=== PATIENT | female | born 1970 | race Caucasian/White ===

== ENCOUNTER 2019-09-17 16:15 | Inpatient (IN) ==
[2019-09-17] MEDS ORDERED: Ondansetron 4 MG/2 ML VIAL IVP PRN (17:38)
[2019-09-17] MEDS ORDERED: Naloxone 0.4 MG/ML INJ IVP PRN (17:38)
[2019-09-17] MEDS ORDERED: *HR* Metoprolol 5 MG/5 ML VIAL IVP PRN (17:38)
[2019-09-17] MEDS ORDERED: *HR* Promethazine 25 MG/ML VIAL IVP PRN (17:38)
[2019-09-17] MEDS ORDERED: Piperacillin/Tazobactam 3.375 GM in 0.9 % Sodium Chloride Mini Bag 100 ML IVPB ONE (17:41)
[2019-09-17] MEDS ORDERED: *HR* Dextrose 50 % in Water (Syg) 50 ML SYRINGE IVP PRN (18:28)
[2019-09-17] MEDS ORDERED: D5% in Water 1,000 ML IVC PRN (18:28)
[2019-09-17] MEDS ORDERED: Dextrose Gel 15 GM/37.5 ML TUBE PO PRN ×2 (18:28)
[2019-09-17 18:36] LABS: INR 1.3; Prothrombin Time 14.2 Seconds (9.4-12.1)
[2019-09-17 18:45] LABS: Basophils # 0.1 K/mcL (0.0-0.2); Basophils % 0.5 %; Eosinophils # 0.1 K/mcL (0.0-0.6); Eosinophils % 0.7 %; Hematocrit 40.7 % (35.3-44.9); Immature Granulocytes % 0.7 % (0-4); Lymphocytes # 2.3 K/mcL (0.6-4.6); Lymphocytes % 17.5 %; Mean Corpuscular HGB Conc 29.5 g/dL (31.6-35.5); Mean Corpuscular Hemoglobin 24.1 pg (28.0-33.3); Mean Corpuscular Volume 81.9 fL (83.0-100.0); Mean Platelet Volume 10.7 fL (9.4-12.4); Monocytes # 0.9 K/mcL (0.0-1.3); Monocytes % 6.9 %; Neutrophils # 9.9 K/mcL (1.6-8.9); Platelet Count 542 K/mcL (140-400); Red Blood Count 4.97 M/mcL (3.82-4.97); Red Cell Distribution Width 22.4 % (11.5-14.5); Segmented Neutrophils % 73.7 %; White Blood Count 13.4 K/mcL (4.3-11.1)
[2019-09-17 19:02] LABS: BUN/Creatinine Ratio 16 (6-26); Blood Urea Nitrogen 12 mg/dL (6-20); Calcium 9.6 mg/dL (8.6-10.3); Carbon Dioxide 19 mEq/L (23-29); Chloride 97 mEq/L (98-107); Glucose 150 mg/dL (70-105); Magnesium 1.8 mg/dL (1.6-2.6); Osmolality,Calculated 271 (280-300); Potassium 3.9 mEq/L (3.5-5.1); Sodium 129 mEq/L (136-145); eGFR For African Americans > 60 (> 60); eGFR For Non-African Americans > 60 (> 60)
[2019-09-17] MEDS: 0.9 % Sodium Chloride 1,000 ML IVC SCH (19:31)
[2019-09-17] MEDS: Acetaminophen IV 1,000 MG/100 ML INFUS..BTL IVPB SCH (21:00)
[2019-09-18] MEDS: Acetaminophen IV 1,000 MG/100 ML INFUS..BTL IVPB SCH ×2 (00:02→05:57)
[2019-09-18] MEDS: Insulin LISPRO 300 UNITS/3 ML VIAL SQ SCH ×5 (00:03→21:03)
[2019-09-18] MEDS: *HR* Metoprolol 5 MG/5 ML VIAL IVP SCH ×4 (00:03→17:20)
[2019-09-18] MEDS: 0.9 % Sodium Chloride 1,000 ML IVC SCH ×2 (02:47→17:19)
[2019-09-18 04:42] LABS: Basophils # 0.1 K/mcL (0.0-0.2); Eosinophils # 0.2 K/mcL (0.0-0.6); Eosinophils % 1.8 %; Hematocrit 34.7 % (35.3-44.9); Hemoglobin 10.5 g/dL (11.5-15.4); Immature Granulocytes % 0.5 % (0-4); Lymphocytes % 21.9 %; Mean Corpuscular HGB Conc 30.3 g/dL (31.6-35.5); Mean Corpuscular Volume 82.6 fL (83.0-100.0); Monocytes # 0.8 K/mcL (0.0-1.3); Monocytes % 8.5 %; Platelet Count 425 K/mcL (140-400); Red Cell Distribution Width 22.4 % (11.5-14.5); Segmented Neutrophils % 66.3 %; White Blood Count 9.1 K/mcL (4.3-11.1)
[2019-09-18] MEDS: Piperacillin/Tazobactam 3.375 GM in 0.9 % Sodium Chloride Mini Bag 100 ML IVPB SCH ×3 (04:52→21:02)
[2019-09-18 05:09] LABS: BUN/Creatinine Ratio 19 (6-26); Blood Urea Nitrogen 10 mg/dL (6-20); Calcium 8.6 mg/dL (8.6-10.3); Carbon Dioxide 20 mEq/L (23-29); Chloride 108 mEq/L (98-107); Glucose 81 mg/dL (70-105); Magnesium 1.7 mg/dL (1.6-2.6); Osmolality,Calculated 280 (280-300); Phosphorous 3.5 mg/dL (2.7-4.5); Potassium 3.4 mEq/L (3.5-5.1); Sodium 136 mEq/L (136-145); eGFR For African Americans > 60 (> 60); eGFR For Non-African Americans > 60 (> 60)
[2019-09-18] MEDS: *HR* Heparin 5,000 UNIT/ML VIAL SQ SCH ×2 (05:55→17:20)
[2019-09-18] MEDS ORDERED: 0.45 % Sodium Chloride w/KCl 20 MEQ/1,000 ML MLS IVC SCH (07:15)
[2019-09-18] MEDS ORDERED: Lidocaine -MPF 1% 5 ML AMPUL INFILT ONE (09:53)
[2019-09-18] MEDS: Pantoprazole 40 MG VIAL IVP SCH (10:17)
[2019-09-18] MEDS: Iron Sucrose Complex 200 MG in 0.9 % Sodium Chloride 100 ML IVPB SCH (10:17)
[2019-09-18] MEDS ORDERED: D10% in Water 500 ML IVC PRN (11:12)
[2019-09-18] MEDS ORDERED: Acetaminophen IV 1,000 MG/100 ML INFUS..BTL IVPB PRN (11:22)
[2019-09-18] MEDS: Ketorolac 30 MG/ML VIAL IVP PRN (12:11)
[2019-09-18] MEDS: *HR* LORazepam 2 MG/ML VIAL IVP PRN (13:30)
[2019-09-18] MEDS ORDERED: Clinimix E 5%-15% SOLUTION 2,000 ML with MVI, adult with vitamin K 10 ML IVC SCH (17:00)
[2019-09-18] MEDS: Nicotine 2 MG GUM BC SCH (17:20)
[2019-09-19] MEDS: Nicotine 2 MG GUM BC SCH ×2 (00:46→08:35)
[2019-09-19] MEDS: Insulin LISPRO 300 UNITS/3 ML VIAL SQ SCH ×7 (00:51→23:55)
[2019-09-19] MEDS: *HR* Metoprolol 5 MG/5 ML VIAL IVP SCH ×4 (00:56→23:55)
[2019-09-19] MEDS: 0.9 % Sodium Chloride 1,000 ML IVC SCH (00:58)
[2019-09-19] MEDS: Piperacillin/Tazobactam 3.375 GM in 0.9 % Sodium Chloride Mini Bag 100 ML IVPB SCH ×3 (04:24→20:32)
[2019-09-19] MEDS: *HR* Heparin 5,000 UNIT/ML VIAL SQ SCH ×2 (05:14→17:04)
[2019-09-19 05:37] LABS: Basophils # 0.1 K/mcL (0.0-0.2); Basophils % 0.7 %; Eosinophils # 0.1 K/mcL (0.0-0.6); Eosinophils % 1.4 %; Hematocrit 32.7 % (35.3-44.9); Hemoglobin 9.7 g/dL (11.5-15.4); Immature Granulocytes % 0.3 % (0-4); Lymphocytes # 1.4 K/mcL (0.6-4.6); Lymphocytes % 20.3 %; Mean Corpuscular HGB Conc 29.7 g/dL (31.6-35.5); Mean Corpuscular Hemoglobin 24.7 pg (28.0-33.3); Mean Corpuscular Volume 83.4 fL (83.0-100.0); Mean Platelet Volume 10.6 fL (9.4-12.4); Monocytes # 0.5 K/mcL (0.0-1.3); Monocytes % 7.6 %; Neutrophils # 4.9 K/mcL (1.6-8.9); Platelet Count 398 K/mcL (140-400); Red Blood Count 3.92 M/mcL (3.82-4.97); Red Cell Distribution Width 22.4 % (11.5-14.5); Segmented Neutrophils % 69.7 %; White Blood Count 7.1 K/mcL (4.3-11.1)
[2019-09-19 05:53] LABS: Magnesium 1.7 mg/dL (1.6-2.6)
[2019-09-19 05:55] LABS: BUN/Creatinine Ratio 13 (6-26); Blood Urea Nitrogen 6 mg/dL (6-20); Calcium 8.4 mg/dL (8.6-10.3); Carbon Dioxide 21 mEq/L (23-29); Chloride 109 mEq/L (98-107); Glucose 141 mg/dL (70-105); Osmolality,Calculated 286 (280-300); Potassium 3.5 mEq/L (3.5-5.1); Sodium 138 mEq/L (136-145); eGFR For African Americans > 60 (> 60); eGFR For Non-African Americans > 60 (> 60)
[2019-09-19] MEDS ORDERED: 0.9 % Sodium Chloride 1,000 ML IVC SCH (07:25)
[2019-09-19] MEDS: Iron Sucrose Complex 200 MG in 0.9 % Sodium Chloride 100 ML IVPB SCH (08:35)
[2019-09-19] MEDS: Pantoprazole 40 MG VIAL IVP SCH (08:35)
[2019-09-19] MEDS: *HR* LORazepam 2 MG/ML VIAL IVP PRN ×2 (09:34→17:04)
[2019-09-19] MEDS ORDERED: Isovue-370 500 ML BOTTLE IVP ONE (09:44)
[2019-09-19] MEDS: Nicotine 7 MG PATCH.TD24 TD SCH (10:07)
[2019-09-19 11:55] LABS: Bilirubin,Urine Negative (Negative); Blood,Urine Trace (Negative); Clarity,Urine Clear (Clear); Color,Urine Yellow (Yellow); Glucose,Urine (UA) >=1000 mg/dL (Normal); Ketones,Urine Negative (Negative); Leukocyte Esterase,Urine Negative (Negative); Nitrite,Urine Negative (Negative); Protein,Urine Negative (Neg-Trace); Specific Gravity,Urine > 1.030 (1.010-1.025); Urobilinogen,Urine Normal (Normal)
[2019-09-19 11:58] LABS: Bacteria,Urine None Seen per hpf (None-Few); Hyaline Casts,Urine None Seen per lpf (None-Few); RBC,Urine 0-3 per hpf (0-3); Squamous Epithelial Cell,Urine None Seen per lpf (None-Few); WBC,Urine 0-3 per hpf (0-3)
[2019-09-19] MEDS ORDERED: Clinimix E 5%-15% SOLUTION 2,000 ML with MVI, adult with vitamin K 10 ML IVC SCH (17:00)
[2019-09-20] MEDS: Ketorolac 30 MG/ML VIAL IVP PRN (04:28)
[2019-09-20] MEDS: Insulin LISPRO 300 UNITS/3 ML VIAL SQ SCH ×2 (04:29→10:21)
[2019-09-20] MEDS: Piperacillin/Tazobactam 3.375 GM in 0.9 % Sodium Chloride Mini Bag 100 ML IVPB SCH ×2 (04:29→12:20)
[2019-09-20 04:44] LABS: Basophils # 0.1 K/mcL (0.0-0.2); Basophils % 1.1 %; Eosinophils # 0.2 K/mcL (0.0-0.6); Eosinophils % 2.9 %; Hematocrit 32.9 % (35.3-44.9); Hemoglobin 9.6 g/dL (11.5-15.4); Immature Granulocytes % 0.3 % (0-4); Lymphocytes # 1.8 K/mcL (0.6-4.6); Mean Corpuscular HGB Conc 29.2 g/dL (31.6-35.5); Mean Corpuscular Hemoglobin 24.2 pg (28.0-33.3); Mean Corpuscular Volume 82.9 fL (83.0-100.0); Mean Platelet Volume 10.5 fL (9.4-12.4); Monocytes # 0.7 K/mcL (0.0-1.3); Monocytes % 10.5 %; Neutrophils # 3.6 K/mcL (1.6-8.9); Platelet Count 358 K/mcL (140-400); Red Blood Count 3.97 M/mcL (3.82-4.97); Red Cell Distribution Width 22.5 % (11.5-14.5); Segmented Neutrophils % 57.2 %; White Blood Count 6.3 K/mcL (4.3-11.1)
[2019-09-20 05:04] LABS: BUN/Creatinine Ratio 14 (6-26); Blood Urea Nitrogen 6 mg/dL (6-20); Calcium 8.2 mg/dL (8.6-10.3); Carbon Dioxide 22 mEq/L (23-29); Chloride 112 mEq/L (98-107); Glucose 151 mg/dL (70-105); Magnesium 1.7 mg/dL (1.6-2.6); Osmolality,Calculated 291 (280-300); Phosphorous 3.2 mg/dL (2.7-4.5); Potassium 3.4 mEq/L (3.5-5.1); Sodium 140 mEq/L (136-145); eGFR For African Americans > 60 (> 60); eGFR For Non-African Americans > 60 (> 60)
[2019-09-20] MEDS: *HR* Heparin 5,000 UNIT/ML VIAL SQ SCH (05:40)
[2019-09-20] MEDS: *HR* Metoprolol 5 MG/5 ML VIAL IVP SCH ×2 (05:40→10:19)
[2019-09-20] MEDS: Pantoprazole 40 MG VIAL IVP SCH (10:19)
[2019-09-20] MEDS: Iron Sucrose Complex 200 MG in 0.9 % Sodium Chloride 100 ML IVPB SCH (10:19)
[2019-09-20] MEDS: Nicotine 7 MG PATCH.TD24 TD SCH (10:20)
[2019-09-20 11:10] VITALS: BP 118/72
[2019-09-20] MEDS ORDERED: Clinimix E 5%-15% SOLUTION 2,000 ML with MVI, adult with vitamin K 10 ML IVC SCH (17:00)
== END 2019-09-20 14:25 | disposition home or self-care (01) ==
LOC: 3ANU
PROVIDERS: ADMIT Surgery; ATTEND Surgery

== ENCOUNTER 2019-09-25 14:07 | Inpatient (IN) ==
[2019-09-25] MEDS ORDERED: *HR* Dextrose 50 % in Water (Syg) 50 ML SYRINGE IVP PRN (17:31)
[2019-09-25] MEDS ORDERED: Dextrose Gel 15 GM/37.5 ML TUBE PO PRN ×2 (17:31)
[2019-09-25] MEDS ORDERED: D5% in Water 1,000 ML IVC PRN (17:31)
[2019-09-25] MEDS ORDERED: *HR* Metoprolol 5 MG/5 ML VIAL IVP PRN (17:32)
[2019-09-25] MEDS ORDERED: Ondansetron 4 MG/2 ML VIAL IVP PRN (17:32)
[2019-09-25] MEDS ORDERED: Naloxone 0.4 MG/ML INJ IVP PRN (17:32)
[2019-09-25] MEDS ORDERED: *HR* Promethazine 25 MG/ML VIAL IVP PRN (17:32)
[2019-09-25] MEDS ORDERED: Piperacillin/Tazobactam 3.375 GM in 0.9 % Sodium Chloride Mini Bag 100 ML IVPB SCH (17:34)
[2019-09-25] MEDS ORDERED: 0.9 % Sodium Chloride 1,000 ML IVC SCH (17:45)
[2019-09-25] MEDS ORDERED: Insulin LISPRO 300 UNITS/3 ML VIAL SQ SCH (18:00)
[2019-09-25] MEDS ORDERED: *HR* LORazepam 2 MG/ML VIAL IVP PRN (18:43)
[2019-09-25] MEDS ORDERED: Nicotine 7 MG PATCH.TD24 TD SCH (18:45)
[2019-09-25] MEDS ORDERED: Albuterol 2.5 MG/3 ML NEBULIZER ONE (22:03)
[2019-09-25] MEDS ORDERED: Ondansetron 4 MG/2 ML VIAL IVP ONE (22:05)
[2019-09-25] MEDS ORDERED: *HR* OxyCODONE Immed Rel 5 MG TABLET PO PRN (22:05)
[2019-09-25] MEDS ORDERED: *HR* Rocuronium Bromide 50 MG/5 ML VIAL ONE (22:28)
[2019-09-25] MEDS ORDERED: Lidocaine -MPF 2% 2 ML VIAL ONE (22:28)
[2019-09-25] MEDS ORDERED: *HR* Propofol 200 MG/20 ML VIAL IVP ONE (22:28)
[2019-09-25] MEDS ORDERED: *HR* FentaNYL (PF) 100 MCG/2 ML VIAL ONE (22:28)
[2019-09-25] MEDS ORDERED: Lidocaine HCL 4 ML Topical Solution (Laryng-O-Jet Kit Sterile Pak) TP ONE (22:28)
[2019-09-25] MEDS ORDERED: *HR* Succinylcholine 200 MG/10 ML VIAL IVP ONE (22:28)
[2019-09-25] MEDS ORDERED: Acetaminophen IV 1,000 MG/100 ML INFUS..BTL ONE (22:30)
[2019-09-25] MEDS ORDERED: Dexamethasone 4 MG/ML VIAL ONE (23:48)
[2019-09-25] MEDS ORDERED: Neostigmine Methylsulfate 3 MG/3 ML SYRINGE ONE (23:48)
[2019-09-25] MEDS ORDERED: Ondansetron 4 MG/2 ML VIAL ONE (23:48)
[2019-09-26] MEDS: *HR* HYDROmorphone PF 0.5 MG/0.5 ML SYRINGE IVP PRN ×4 (00:39→00:54)
[2019-09-26] MEDS ORDERED: D5% in Water 1,000 ML IVC PRN (01:30)
[2019-09-26] MEDS ORDERED: Ondansetron 4 MG/2 ML VIAL IVP PRN (01:30)
[2019-09-26] MEDS ORDERED: *HR* Metoprolol 5 MG/5 ML VIAL IVP PRN (01:30)
[2019-09-26] MEDS ORDERED: Naloxone 0.4 MG/ML INJ IVP PRN (01:30)
[2019-09-26] MEDS ORDERED: *HR* Dextrose 50 % in Water (Syg) 50 ML SYRINGE IVP PRN (01:30)
[2019-09-26] MEDS ORDERED: Dextrose Gel 15 GM/37.5 ML TUBE PO PRN ×2 (01:30)
[2019-09-26] MEDS ORDERED: *HR* Promethazine 25 MG/ML VIAL IVP PRN (01:30)
[2019-09-26 02:12] LABS: Basophils # 0.1 K/mcL (0.0-0.2); Basophils % 0.7 %; Eosinophils # 0.1 K/mcL (0.0-0.6); Eosinophils % 1.2 %; Hematocrit 37.8 % (35.3-44.9); Immature Granulocytes % 0.7 % (0-4); Lymphocytes # 1.2 K/mcL (0.6-4.6); Lymphocytes % 16.2 %; Mean Corpuscular HGB Conc 29.6 g/dL (31.6-35.5); Mean Corpuscular Hemoglobin 25.6 pg (28.0-33.3); Mean Corpuscular Volume 86.3 fL (83.0-100.0); Mean Platelet Volume 10.4 fL (9.4-12.4); Monocytes # 0.4 K/mcL (0.0-1.3); Monocytes % 5.9 %; Neutrophils # 5.7 K/mcL (1.6-8.9); Platelet Count 252 K/mcL (140-400); Red Blood Count 4.38 M/mcL (3.82-4.97); Segmented Neutrophils % 75.3 %; White Blood Count 7.5 K/mcL (4.3-11.1)
[2019-09-26 02:20] LABS: Hemoglobin 11.2 g/dL (11.5-15.4)
[2019-09-26 02:29] LABS: BUN/Creatinine Ratio 13 (6-26); Blood Urea Nitrogen 7 mg/dL (6-20); Calcium 8.3 mg/dL (8.6-10.3); Carbon Dioxide 21 mEq/L (23-29); Chloride 109 mEq/L (98-107); Glucose 208 mg/dL (70-105); Osmolality,Calculated 290 (280-300); Potassium 3.3 mEq/L (3.5-5.1); Sodium 138 mEq/L (136-145); eGFR For African Americans > 60 (> 60); eGFR For Non-African Americans > 60 (> 60)
[2019-09-26 02:43] LABS: Platelet Estimate Normal (Normal)
[2019-09-26] MEDS: 0.9 % Sodium Chloride 1,000 ML IVC SCH ×2 (02:48→17:31)
[2019-09-26] MEDS: *HR* LORazepam 2 MG/ML VIAL IVP PRN ×2 (04:25→23:26)
[2019-09-26] MEDS: Acetaminophen 325 MG TABLET PO SCH ×3 (06:02→17:31)
[2019-09-26] MEDS: Insulin LISPRO 300 UNITS/3 ML VIAL SQ SCH ×3 (06:23→17:32)
[2019-09-26] MEDS ORDERED: 0.9 % Sodium Chloride (Mini-Bag +) 100 ML IVBAG ONE (07:47)
[2019-09-26] MEDS ORDERED: Pantoprazole 40 MG VIAL ONE (07:47)
[2019-09-26] MEDS ORDERED: *HR* Heparin 5,000 UNIT/ML VIAL ONE (07:47)
[2019-09-26] MEDS ORDERED: Acetaminophen 325 MG TABLET PO ONE (07:47)
[2019-09-26] MEDS ORDERED: Ipratropium/Albuterol Neb 3 ML ONE ×2 (07:47→14:34)
[2019-09-26] MEDS ORDERED: Piperacillin/Tazobactam 3.375 GM VIAL ONE (07:47)
[2019-09-26] MEDS: Piperacillin/Tazobactam 3.375 GM in 0.9 % Sodium Chloride Mini Bag 100 ML IVPB SCH ×3 (08:00→23:18)
[2019-09-26] MEDS: *HR* Heparin 5,000 UNIT/ML VIAL SQ SCH ×2 (08:10→20:20)
[2019-09-26] MEDS: Pantoprazole 40 MG VIAL IVP SCH (08:45)
[2019-09-26] MEDS ORDERED: Pantoprazole 40 MG VIAL IVP SCH (09:00)
[2019-09-26] MEDS ORDERED: *HR* Heparin 5,000 UNIT/ML VIAL SQ SCH (09:00)
[2019-09-26] MEDS ORDERED: 0.9 % Sodium Chloride 1,000 ML IV.SOLN ONE (14:34)
[2019-09-26] MEDS ORDERED: *HR* LORazepam 2 MG/ML VIAL ONE (14:34)
[2019-09-26] MEDS: Ipratropium/Albuterol Neb 3 ML IH SCH ×2 (16:16→21:55)
[2019-09-26] MEDS: Nicotine 7 MG PATCH.TD24 TD SCH (17:33)
[2019-09-26] MEDS ORDERED: Ketorolac 15 MG/ML VIAL IVP ONE (21:59)
[2019-09-26] MEDS ORDERED: Acetaminophen IV 1,000 MG/100 ML INFUS..BTL IVPB ONE (22:01)
[2019-09-27] MEDS: Ketorolac 15 MG/ML VIAL IVP SCH ×5 (01:58→23:36)
[2019-09-27] MEDS: Insulin LISPRO 300 UNITS/3 ML VIAL SQ SCH ×5 (02:00→20:44)
[2019-09-27 02:23] LABS: Basophils % 0.6 %; Eosinophils # 0.2 K/mcL (0.0-0.6); Eosinophils % 2.1 %; Hematocrit 36.8 % (35.3-44.9); Hemoglobin 10.9 g/dL (11.5-15.4); Immature Granulocytes % 0.4 % (0-4); Lymphocytes # 1.1 K/mcL (0.6-4.6); Lymphocytes % 15.8 %; Mean Corpuscular HGB Conc 29.6 g/dL (31.6-35.5); Mean Corpuscular Hemoglobin 25.4 pg (28.0-33.3); Mean Corpuscular Volume 85.8 fL (83.0-100.0); Mean Platelet Volume 10.3 fL (9.4-12.4); Monocytes # 0.8 K/mcL (0.0-1.3); Monocytes % 10.7 %; Neutrophils # 5.1 K/mcL (1.6-8.9); Platelet Count 212 K/mcL (140-400); Red Blood Count 4.29 M/mcL (3.82-4.97); Red Cell Distribution Width 24.9 % (11.5-14.5); Segmented Neutrophils % 70.4 %; White Blood Count 7.2 K/mcL (4.3-11.1)
[2019-09-27 02:36] LABS: BUN/Creatinine Ratio 14 (6-26); Blood Urea Nitrogen 6 mg/dL (6-20); Calcium 7.8 mg/dL (8.6-10.3); Carbon Dioxide 22 mEq/L (23-29); Chloride 108 mEq/L (98-107); Glucose 188 mg/dL (70-105); Osmolality,Calculated 283 (280-300); Potassium 3.4 mEq/L (3.5-5.1); Sodium 135 mEq/L (136-145); eGFR For African Americans > 60 (> 60); eGFR For Non-African Americans > 60 (> 60)
[2019-09-27 03:04] LABS: Ovalocytes 2+ (Not Present); Platelet Estimate Normal (Normal); Tear Drop Cells 2+ (Not Present)
[2019-09-27] MEDS: 0.9 % Sodium Chloride 1,000 ML IVC SCH ×3 (03:32→23:49)
[2019-09-27] MEDS: Ipratropium/Albuterol Neb 3 ML IH SCH ×4 (04:06→22:02)
[2019-09-27] MEDS: Piperacillin/Tazobactam 3.375 GM in 0.9 % Sodium Chloride Mini Bag 100 ML IVPB SCH ×3 (07:19→23:36)
[2019-09-27] MEDS: *HR* Heparin 5,000 UNIT/ML VIAL SQ SCH ×2 (07:25→20:43)
[2019-09-27] MEDS: Pantoprazole 40 MG VIAL IVP SCH (07:26)
[2019-09-27] MEDS: Acetaminophen IV 1,000 MG/100 ML INFUS..BTL IVPB SCH ×2 (11:26→17:13)
[2019-09-27] MEDS: Nicotine 7 MG PATCH.TD24 TD SCH (17:15)
[2019-09-27] MEDS: *HR* LORazepam 2 MG/ML VIAL IVP PRN (20:43)
[2019-09-27] MEDS ORDERED: Acetaminophen IV 1,000 MG/100 ML INFUS..BTL IVPB SCH (21:58)
[2019-09-28] MEDS: Acetaminophen IV 1,000 MG/100 ML INFUS..BTL IVPB SCH ×2 (00:23→00:56)
[2019-09-28] MEDS: Ipratropium/Albuterol Neb 3 ML IH SCH ×4 (03:24→21:55)
[2019-09-28] MEDS: Insulin LISPRO 300 UNITS/3 ML VIAL SQ SCH ×3 (05:48→17:35)
[2019-09-28] MEDS: Ketorolac 15 MG/ML VIAL IVP SCH ×3 (05:48→17:36)
[2019-09-28] MEDS: Piperacillin/Tazobactam 3.375 GM in 0.9 % Sodium Chloride Mini Bag 100 ML IVPB SCH ×2 (09:26→15:30)
[2019-09-28] MEDS: *HR* OxyCODONE/APAP 5/325 TABLET PO PRN ×2 (09:27→20:45)
[2019-09-28] MEDS: Pantoprazole 40 MG VIAL IVP SCH (09:27)
[2019-09-28] MEDS: *HR* Heparin 5,000 UNIT/ML VIAL SQ SCH ×2 (09:27→20:44)
[2019-09-28] MEDS: Nicotine 7 MG PATCH.TD24 TD SCH (17:36)
[2019-09-28] MEDS: *HR* LORazepam 2 MG/ML VIAL IVP PRN (20:44)
[2019-09-28] MEDS ORDERED: Insulin LISPRO 300 UNITS/3 ML VIAL SQ SCH (21:00)
[2019-09-29] MEDS: Piperacillin/Tazobactam 3.375 GM in 0.9 % Sodium Chloride Mini Bag 100 ML IVPB SCH ×2 (00:43→08:18)
[2019-09-29] MEDS: Ketorolac 15 MG/ML VIAL IVP SCH ×2 (00:44→05:52)
[2019-09-29] MEDS: Ipratropium/Albuterol Neb 3 ML IH SCH ×2 (03:46→10:26)
[2019-09-29 04:42] LABS: Basophils % 0.4 %; Eosinophils # 0.5 K/mcL (0.0-0.6); Eosinophils % 7.7 %; Hematocrit 33.3 % (35.3-44.9); Hemoglobin 9.8 g/dL (11.5-15.4); Immature Granulocytes % 0.7 % (0-4); Lymphocytes # 1.4 K/mcL (0.6-4.6); Lymphocytes % 20.5 %; Mean Corpuscular HGB Conc 29.4 g/dL (31.6-35.5); Mean Corpuscular Hemoglobin 25.2 pg (28.0-33.3); Mean Corpuscular Volume 85.6 fL (83.0-100.0); Mean Platelet Volume 10.8 fL (9.4-12.4); Monocytes # 0.5 K/mcL (0.0-1.3); Monocytes % 7.7 %; Neutrophils # 4.3 K/mcL (1.6-8.9); Platelet Count 202 K/mcL (140-400); Red Blood Count 3.89 M/mcL (3.82-4.97); Red Cell Distribution Width 25.2 % (11.5-14.5); White Blood Count 6.8 K/mcL (4.3-11.1)
[2019-09-29] MEDS: *HR* OxyCODONE/APAP 5/325 TABLET PO PRN (04:47)
[2019-09-29 05:06] LABS: BUN/Creatinine Ratio 17 (6-26); Blood Urea Nitrogen 7 mg/dL (6-20); Carbon Dioxide 22 mEq/L (23-29); Chloride 113 mEq/L (98-107); Glucose 189 mg/dL (70-105); Magnesium 1.7 mg/dL (1.6-2.6); Osmolality,Calculated 289 (280-300); Phosphorous 2.5 mg/dL (2.7-4.5); Sodium 138 mEq/L (136-145); eGFR For African Americans > 60 (> 60); eGFR For Non-African Americans > 60 (> 60)
[2019-09-29 06:10] LABS: Anisocytosis 1+ (Not Present); Platelet Estimate Normal (Normal)
[2019-09-29] MEDS ORDERED: Potassium Chloride 40 MEQ, Lidocaine 1% 2 ML in 0.9 % Sodium Chloride 500 ML IVPB ONE (07:10)
[2019-09-29] MEDS: Insulin LISPRO 300 UNITS/3 ML VIAL SQ SCH (08:17)
[2019-09-29] MEDS: *HR* Heparin 5,000 UNIT/ML VIAL SQ SCH (08:18)
[2019-09-29] MEDS: Pantoprazole 40 MG VIAL IVP SCH (08:18)
[2019-09-29 10:37] VITALS: BP 114/74
== END 2019-09-29 11:15 | disposition home health service (06) | DRG 331 ==
LOC: RAD 14:07 → 3ANU 14:07
PROVIDERS: ADMIT Surgery; ATTEND Surgery

== ENCOUNTER 2019-12-13 16:53 | Observation (INO) ==
[2019-12-13] MEDS ORDERED: Naloxone 0.4 MG/ML INJ IVP PRN (20:09)
[2019-12-13] MEDS ORDERED: Ondansetron 4 MG/2 ML VIAL IVP PRN (20:09)
[2019-12-13] MEDS ORDERED: Potassium Chloride 40 MEQ, Lidocaine 1% 2 ML in 0.9 % Sodium Chloride 500 ML IVPB ONE (20:24)
[2019-12-13] MEDS ORDERED: D5% in Water 1,000 ML IVC PRN (21:10)
[2019-12-13] MEDS ORDERED: Dextrose Gel 15 GM/37.5 ML TUBE PO PRN ×2 (21:10)
[2019-12-13] MEDS ORDERED: *HR* Dextrose 50 % in Water (Syg) 50 ML SYRINGE IVP PRN (21:10)
[2019-12-13] MEDS ORDERED: Insulin DETEMIR 100 UNIT/ML X5UNITS SQ SCH (21:15)
[2019-12-13] MEDS ORDERED: *HR* LORazepam 0.5 MG TABLET PO PRN (21:34)
[2019-12-13 21:42] LABS: Estimated Average Glucose 226 mg/dl
[2019-12-13] MEDS: Ringers Solution, Lactated 1,000 ML IVC SCH (22:07)
[2019-12-13 23:09] LABS: Bilirubin,Urine Negative (Negative); Blood,Urine Negative (Negative); Clarity,Urine Cloudy (Clear); Color,Urine Yellow (Yellow); Glucose,Urine (UA) 250 mg/dL (Normal); Ketones,Urine Trace mg/dL (Negative); Leukocyte Esterase,Urine Negative (Negative); Nitrite,Urine Negative (Negative); PH,Urine 5.5 pH Units (5.0-8.0); Protein,Urine 30 mg/dL (Neg-Trace); Urobilinogen,Urine Normal (Normal)
[2019-12-13 23:11] LABS: Bacteria,Urine None Seen per hpf (None-Few); Hyaline Casts,Urine Few per lpf (None-Few); Squamous Epithelial Cell,Urine Many per lpf (None-Few); WBC,Urine 0-3 per hpf (0-3)
[2019-12-13 23:21] LABS: Sodium, Urine 19.5 mEq/L
[2019-12-14 03:17] LABS: Basophils % 0.5 %; Eosinophils # 0.2 K/mcL (0.0-0.6); Eosinophils % 2.5 %; Hematocrit 37.4 % (35.3-44.9); Hemoglobin 12.6 g/dL (11.5-15.4); Immature Granulocytes % 0.3 % (0-4); Lymphocytes # 2.3 K/mcL (0.6-4.6); Mean Corpuscular HGB Conc 33.7 g/dL (31.6-35.5); Mean Corpuscular Hemoglobin 30.2 pg (28.0-33.3); Mean Corpuscular Volume 89.7 fL (83.0-100.0); Mean Platelet Volume 10.1 fL (9.4-12.4); Monocytes # 0.7 K/mcL (0.0-1.3); Monocytes % 7.6 %; Neutrophils # 5.4 K/mcL (1.6-8.9); Platelet Count 246 K/mcL (140-400); Red Blood Count 4.17 M/mcL (3.82-4.97); Red Cell Distribution Width 17.5 % (11.5-14.5); Segmented Neutrophils % 62.1 %; White Blood Count 8.6 K/mcL (4.3-11.1)
[2019-12-14 03:38] LABS: Calcium 8.6 mg/dL (8.6-10.3); Magnesium 1.5 mg/dL (1.6-2.6); Phosphorous 2.9 mg/dL (2.7-4.5); Potassium 3.5 mEq/L (3.5-5.1)
[2019-12-14] MEDS: Insulin LISPRO 300 UNITS/3 ML VIAL SQ SCH ×3 (05:08→13:18)
[2019-12-14] MEDS ORDERED: *HR* Heparin 5,000 UNIT/ML VIAL SQ SCH (06:00)
[2019-12-14] MEDS ORDERED: Magnesium Sulfate 1 GM/102 ML PIGGYBACK IVPB ONE (08:54)
[2019-12-14] MEDS: Ringers Solution, Lactated 1,000 ML IVC SCH (09:21)
[2019-12-14 09:56] LABS: Adenovirus F 40/41 PCR Not detected (Not detect); Astrovirus PCR Not detected (Not detect); C.difficile Toxin A/B Gene PCR Not detected (Not detect); Campylobacter by PCR Not detected (Not detect); Cryptosporidium by PCR Not detected (Not detect); Cyclospora cayetanensis PCR Not detected (Not detect); E. coli O157 by PCR Not detected (Not detect); Entamoeba histolytica PCR Not detected (Not detect); Enteroaggregative E.coli(EAEC) Not detected (Not detect); Enteropathogenic E.coli(EPEC) DETECTED (Not detect); Enterotoxigenic E.coli (ETEC) Not detected (Not detect); Giardia lamblia PCR Not detected (Not detect); Norovirus GI/GII PCR Not detected (Not detect); Plesiomonas shigelloides PCR Not detected (Not detect); Rotavirus A PCR Not detected (Not detect); Salmonella PCR Not detected (Not detect); Sapovirus PCR Not detected (Not detect); Shig/EnteroinvasiveE coli EIEC Not detected (Not detect); Shigalike tox-prod E coli STEC Not detected (Not detect); Vibrio PCR Not detected (Not detect); Vibrio cholerae PCR Not detected (Not detect); Yersinia enterocolitica PCR Not detected (Not detect)
[2019-12-14 10:51] VITALS: BP 135/64
[2019-12-14 11:48] LABS: BUN/Creatinine Ratio 32 (6-26); Blood Urea Nitrogen 37 mg/dL (6-20); Calcium 8.5 mg/dL (8.6-10.3); Carbon Dioxide 18 mEq/L (23-29); Chloride 109 mEq/L (98-107); Glucose 145 mg/dL (70-105); Osmolality,Calculated 293 (280-300); Potassium 3.3 mEq/L (3.5-5.1); Sodium 136 mEq/L (136-145); eGFR For African Americans > 60 (> 60); eGFR For Non-African Americans 50 (> 60)
[2019-12-14] MEDS ORDERED: Azithromycin 250 MG TABLET PO ONE (12:45)
[2019-12-14] MEDS ORDERED: Insulin DETEMIR 100 UNIT/ML X5UNITS SQ SCH (21:00)
== END 2019-12-14 14:17 | disposition home or self-care (01) ==
LOC: 3ANU → SUATTDRO 19:00
PROVIDERS: ADMIT Internal Medicine; ATTEND Internal Medicine

== ENCOUNTER 2020-09-02 21:10 | Observation (INO) ==
[2020-09-02] MEDS ORDERED: Ondansetron 4 MG/2 ML VIAL IVP ONE (21:24)
[2020-09-02] MEDS ORDERED: Morphine Sulfate 2 MG/ML SYRINGE IVP ONE (21:24)
[2020-09-02] MEDS ORDERED: Isovue-370 500 ML BOTTLE IVP ONE (21:25)
[2020-09-02] MEDS ORDERED: 0.9 % Sodium Chloride 1,000 ML IV ONE (21:25)
[2020-09-02 22:43] LABS: Bilirubin,Urine Negative (Negative); Blood,Urine Negative (Negative); Clarity,Urine Clear (Clear); Color,Urine Yellow (Yellow); Glucose,Urine (UA) 500 mg/dL (Normal); Hyaline Casts,Urine Moderate per lpf (None Seen); Ketones,Urine 10 mg/dL (Negative); Leukocyte Esterase,Urine Negative (Negative); Mucus,Urine Few per lpf (None-Few); Nitrite,Urine Negative (Negative); Protein,Urine 100 mg/dL (Neg-Trace); RBC,Urine 0-3 per hpf (0-3); Specific Gravity,Urine 1.024 (1.010-1.025); Squamous Epithelial Cell,Urine Few per hpf (None-Few); Urobilinogen,Urine Normal (Normal); WBC,Urine 0-3 per hpf (0-3)
[2020-09-02 23:20] LABS: Basophils # 0.1 K/mcL (0.0-0.2); Basophils % 0.5 %; Eosinophils % 0.1 %; Hematocrit 48.5 % (35.3-44.9); Hemoglobin 16.4 g/dL (11.5-15.4); Immature Granulocytes % 0.8 % (0-4); Lymphocytes # 2.1 K/mcL (0.6-4.6); Lymphocytes % 12.7 %; Mean Corpuscular HGB Conc 33.8 g/dL (31.6-35.5); Mean Corpuscular Volume 88.7 fL (83.0-100.0); Monocytes # 0.4 K/mcL (0.0-1.3); Monocytes % 2.2 %; Neutrophils # 13.7 K/mcL (1.6-8.9); Platelet Count 314 K/mcL (140-400); Red Blood Count 5.47 M/mcL (3.82-4.97); Red Cell Distribution Width 13.1 % (11.5-14.5); Segmented Neutrophils % 83.7 %; White Blood Count 16.4 K/mcL (4.3-11.1)
[2020-09-02 23:39] LABS: Alanine Aminotransferase 30 Units/L (7-52); Albumin 4.6 g/dL (3.5-5.7); Albumin/Globulin Ratio 1.2 (1.1-2.2); Alkaline Phosphatase 147 Units/L (34-104); Aspartate Amino Transferase 13 Units/L (13-39); BUN/Creatinine Ratio 20 (6-26); Bilirubin,Direct 0.2 mg/dL (0.0-0.2); Bilirubin,Indirect 0.8 mg/dL (0.0-1.0); Blood Urea Nitrogen 52 mg/dL (6-20); Calcium 9.9 mg/dL (8.6-10.3); Carbon Dioxide 13 mEq/L (23-29); Chloride 93 mEq/L (98-107); Globulin 3.7 g/dL (2.4-3.5); Glucose 480 mg/dL (70-105); Lipase 49 Units/L (11-82); Osmolality,Calculated 295 (280-300); Potassium 3.9 mEq/L (3.5-5.1); Sodium 125 mEq/L (136-145); Total Protein 8.3 g/dL (6.4-8.9); Troponin I < 0.03 ng/mL (< 0.04); eGFR For African Americans 23 (> 60); eGFR For Non-African Americans 19 (> 60)
[2020-09-02] MEDS ORDERED: *HR* HYDROmorphone (PF) 1 MG/ML SYRINGE IVP ONE (23:49)
[2020-09-03] MEDS ORDERED: Ondansetron 4 MG/2 ML VIAL IVP ONE (00:28)
[2020-09-03] MEDS ORDERED: Acetaminophen 325 MG TABLET PO PRN (01:29)
[2020-09-03] MEDS ORDERED: Naloxone 0.4 MG/ML INJ IVP PRN (01:29)
[2020-09-03] MEDS ORDERED: Ondansetron 4 MG/2 ML VIAL IVP PRN (01:29)
[2020-09-03] MEDS ORDERED: *HR* Promethazine 25 MG/ML VIAL IM PRN (01:29)
[2020-09-03] MEDS ORDERED: *HR* Dextrose 50 % in Water (Vial) 50 ML VIAL IVP PRN (01:33)
[2020-09-03] MEDS ORDERED: D5% in Water 1,000 ML IVC PRN (01:33)
[2020-09-03] MEDS ORDERED: Dextrose Gel 15 GM/37.5 ML TUBE PO PRN ×2 (01:33)
[2020-09-03] MEDS ORDERED: *HR* Metoprolol 5 MG/5 ML VIAL IVP ONE ×2 (02:30→03:46)
[2020-09-03] MEDS ORDERED: Ringers Solution, Lactated 1,000 ML IVC ONE (03:00)
[2020-09-03] MEDS ORDERED: Insulin LISPRO 300 UNITS/3 ML VIAL SUBQ ONE (03:46)
[2020-09-03] MEDS ORDERED: Pantoprazole 40 MG VIAL ONE (03:46)
[2020-09-03] MEDS ORDERED: Insulin DETEMIR 100 UNIT/ML X5UNITS SUBQ ONE (03:48)
[2020-09-03 04:04] LABS: VBG HCO3 18 mEq/L (21-27); VBG PCO2 39 mmHg (41-51); VBG PH 7.27 pH Units (7.32-7.42); VBG PO2 83 mmHg (25-50)
[2020-09-03] MEDS: Ringers Solution, Lactated 1,000 ML IVC SCH ×3 (04:30→11:14)
[2020-09-03] MEDS ORDERED: D5% in 0.45% NACL w KCl 20 MEQ/1,000 ML MLS IVC PRN (05:42)
[2020-09-03] MEDS ORDERED: D5% in 0.45% NACL 1,000 ML IVC PRN (05:42)
[2020-09-03] MEDS ORDERED: Insulin Regular, Human 100 UNIT/ML IV PRN (05:42)
[2020-09-03] MEDS ORDERED: 0.45 % Sodium Chloride w/KCl 20 MEQ/1,000 ML MLS IVC PRN (05:45)
[2020-09-03] MEDS ORDERED: Insulin Human Regular 100 UNIT in 0.9 % Sodium Chloride 100 ML IVC SCH (05:45)
[2020-09-03 05:55] LABS: INR 1.2; Prothrombin Time 13.4 Seconds (9.4-12.1)
[2020-09-03 06:03] LABS: Basophils # 0.1 K/mcL (0.0-0.2); Basophils % 0.5 %; Hematocrit 40.4 % (35.3-44.9); Immature Granulocytes % 0.6 % (0-4); Lymphocytes # 1.5 K/mcL (0.6-4.6); Lymphocytes % 12.2 %; Mean Corpuscular HGB Conc 33.9 g/dL (31.6-35.5); Mean Corpuscular Hemoglobin 30.1 pg (28.0-33.3); Mean Corpuscular Volume 88.8 fL (83.0-100.0); Mean Platelet Volume 10.3 fL (9.4-12.4); Monocytes # 0.6 K/mcL (0.0-1.3); Monocytes % 4.4 %; Neutrophils # 10.4 K/mcL (1.6-8.9); Platelet Count 226 K/mcL (140-400); Red Blood Count 4.55 M/mcL (3.82-4.97); Red Cell Distribution Width 13.1 % (11.5-14.5); Segmented Neutrophils % 82.3 %; White Blood Count 12.6 K/mcL (4.3-11.1)
[2020-09-03 06:05] LABS: Hemoglobin 13.7 g/dL (11.5-15.4)
[2020-09-03 06:12] LABS: Albumin/Globulin Ratio 1.4 (1.1-2.2); Bilirubin,Total 0.6 mg/dL (0.3-1.0); Calcium 8.8 mg/dL (8.6-10.3); Globulin 2.9 g/dL (2.4-3.5); Magnesium 1.6 mg/dL (1.6-2.6); Phosphorous 4.7 mg/dL (2.7-4.5); Potassium 3.5 mEq/L (3.5-5.1); Total Protein 6.9 g/dL (6.4-8.9)
[2020-09-03] MEDS: Pantoprazole 40 MG VIAL IVP SCH ×2 (06:38→06:39)
[2020-09-03] MEDS ORDERED: Insulin LISPRO 300 UNITS/3 ML VIAL SUBQ SCH ×2 (07:30→21:00)
[2020-09-03 08:04] LABS: Calcium 8.6 mg/dL (8.6-10.3); Potassium 3.2 mEq/L (3.5-5.1)
[2020-09-03 08:47] LABS: Calcium 8.7 mg/dL (8.6-10.3); Potassium 3.2 mEq/L (3.5-5.1)
[2020-09-03] MEDS ORDERED: D5% in 0.9% NACL w KCl 20 MEQ/1,000 ML MLS IVC SCH (09:15)
[2020-09-03] MEDS ORDERED: Insulin DETEMIR 100 UNIT/ML X5UNITS SUBQ SCH ×2 (09:30→21:00)
[2020-09-03 11:01] VITALS: BP 111/71
[2020-09-03 11:31] LABS: Estimated Average Glucose 269 mg/dl
[2020-09-03 12:28] LABS: Calcium 8.4 mg/dL (8.6-10.3); Potassium 3.3 mEq/L (3.5-5.1)
== END 2020-09-03 15:19 | disposition home or self-care (01) ==
LOC: EMEROOARM 21:10 → 2ANU 21:10 → 2NNU 09-03 06:44
PROVIDERS: ADMIT Family Medicine; ATTEND Family Medicine

== ENCOUNTER 2020-11-02 03:07 | Inpatient (IN) ==
[2020-11-02] MEDS ORDERED: Isovue-370 500 ML BOTTLE IVP ONE (03:14)
[2020-11-02] MEDS ORDERED: *HR* FentaNYL (PF) 100 MCG/2 ML VIAL IVP ONE (03:16)
[2020-11-02] MEDS ORDERED: Ondansetron 4 MG/2 ML VIAL IVP ONE (03:16)
[2020-11-02] MEDS ORDERED: Morphine Sulfate 2 MG/ML SYRINGE IVP ONE (03:40)
[2020-11-02 03:44] LABS: Basophils # 0.1 K/mcL (0.0-0.2); Basophils % 0.9 %; Eosinophils # 0.5 K/mcL (0.0-0.6); Eosinophils % 4.3 %; Hematocrit 40.1 % (35.3-44.9); Immature Granulocytes % 0.6 % (0-4); Lymphocytes % 24.7 %; Mean Corpuscular HGB Conc 32.4 g/dL (31.6-35.5); Mean Corpuscular Hemoglobin 29.4 pg (28.0-33.3); Mean Corpuscular Volume 90.7 fL (83.0-100.0); Mean Platelet Volume 9.9 fL (9.4-12.4); Monocytes # 0.7 K/mcL (0.0-1.3); Monocytes % 5.4 %; Neutrophils # 7.8 K/mcL (1.6-8.9); Platelet Count 255 K/mcL (140-400); Red Blood Count 4.42 M/mcL (3.82-4.97); Red Cell Distribution Width 13.8 % (11.5-14.5); Segmented Neutrophils % 64.1 %; White Blood Count 12.1 K/mcL (4.3-11.1)
[2020-11-02 03:56] LABS: Prothrombin Time 11.3 Seconds (9.4-12.1)
[2020-11-02 03:58] LABS: Activated Partial Thrombo Time 28.2 Seconds (26.0-36.0)
[2020-11-02 04:22] LABS: BUN/Creatinine Ratio 20 (6-26); Blood Urea Nitrogen 23 mg/dL (6-20); Calcium 9.4 mg/dL (8.6-10.3); Carbon Dioxide 17 mEq/L (23-29); Chloride 107 mEq/L (98-107); Glucose 320 mg/dL (70-105); Osmolality,Calculated 296 (280-300); Potassium 3.5 mEq/L (3.5-5.1); Sodium 135 mEq/L (136-145); Troponin I < 0.03 ng/mL (< 0.04); eGFR For African Americans > 60 (> 60); eGFR For Non-African Americans 50 (> 60)
[2020-11-02] MEDS ORDERED: Metoclopramide 10 MG/2 ML VIAL IVP ONE ×2 (04:40→21:15)
[2020-11-02] MEDS ORDERED: D5% in Water 1,000 ML IVC PRN (06:03)
[2020-11-02] MEDS ORDERED: *HR* Dextrose 50 % in Water (Vial) 50 ML VIAL IVP PRN (06:03)
[2020-11-02] MEDS ORDERED: Dextrose Gel 15 GM/37.5 ML TUBE PO PRN ×2 (06:03)
[2020-11-02] MEDS ORDERED: Naloxone 0.4 MG/ML INJ IVP PRN (06:04)
[2020-11-02] MEDS ORDERED: Perflutren Lipid Microsphere 1.3 ML in 0.9 % Sodium Chloride 8.7 ML IVP PRN (06:05)
[2020-11-02 07:09] LABS: Thyroid Stimulating Hormone 6.627 mcIU/mL (0.340-5.600)
[2020-11-02] MEDS: Acetaminophen 325 MG TABLET PO PRN ×2 (09:33→21:33)
[2020-11-02] MEDS: Insulin LISPRO 300 UNITS/3 ML VIAL SUBQ SCH ×4 (09:34→20:51)
[2020-11-02] MEDS ORDERED: *HR* Heparin 5,000 UNIT/ML VIAL IVP ONE (10:25)
[2020-11-02] MEDS ORDERED: *HR* Heparin 5,000 UNIT/ML VIAL IVP PRN ×2 (10:25)
[2020-11-02] MEDS ORDERED: Aspirin 325 MG TABLET PO ONE (10:29)
[2020-11-02] MEDS ORDERED: Heparin 25,000UNIT/250ML 1/2NS 25,000 UNIT/250 ML IV.SOLN IVC SCH (10:30)
[2020-11-02] MEDS ORDERED: *HR* Midazolam HCl 2 MG/2 ML VIAL ONE (11:28)
[2020-11-02] MEDS ORDERED: *HR* FentaNYL (PF) 100 MCG/2 ML VIAL ONE (11:28)
[2020-11-02] MEDS ORDERED: Heparin 1,000 UNITS/500 mL 500 ML ONE (11:29)
[2020-11-02] MEDS ORDERED: Nitroglycerin 1,000 MCG/5 ML VIAL IV ONE (11:29)
[2020-11-02] MEDS ORDERED: 0.9 % Sodium Chloride 2,000 ML ONE (11:29)
[2020-11-02] MEDS ORDERED: *HR* Heparin 10,000 UNIT/10 ML VIAL ONE (11:29)
[2020-11-02] MEDS ORDERED: ISOVUE-370 200 ML INFUS..BTL ONE (11:29)
[2020-11-02 11:52] LABS: Hematocrit 41.1 % (35.3-44.9); Hemoglobin 13.5 g/dL (11.5-15.4); Mean Corpuscular HGB Conc 32.8 g/dL (31.6-35.5); Mean Corpuscular Hemoglobin 29.5 pg (28.0-33.3); Mean Corpuscular Volume 89.7 fL (83.0-100.0); Mean Platelet Volume 10.2 fL (9.4-12.4); Platelet Count 256 K/mcL (140-400); Red Blood Count 4.58 M/mcL (3.82-4.97); White Blood Count 12.8 K/mcL (4.3-11.1)
[2020-11-02] MEDS ORDERED: Tirofiban 12.5 MG/250ML 12.5 MG/250 ML BAG ONE (12:05)
[2020-11-02] MEDS ORDERED: *HR* Atropine Sulfate 1 MG/10 ML SYRINGE ONE (12:06)
[2020-11-02] MEDS ORDERED: *HR* Ticagrelor 90 MG TABLET ONE (12:25)
[2020-11-02] MEDS ORDERED: Tirofiban 12.5 MG/250ML 12.5 MG/250 ML BAG IVC SCH (12:30)
[2020-11-02] MEDS ORDERED: 0.9 % Sodium Chloride 1,000 ML ONE (12:31)
[2020-11-02] MEDS ORDERED: hydrOXYzine pamoate 25 MG CAPSULE PO PRN (14:17)
[2020-11-02] MEDS: *HR* HYDROcodone/Acet 5/325 mg TABLET PO PRN (14:35)
[2020-11-02] MEDS: *HR* Ticagrelor 90 MG TABLET PO SCH (20:50)
[2020-11-02] MEDS: Insulin DETEMIR 100 UNIT/ML X5UNITS SUBQ SCH (20:51)
[2020-11-02] MEDS ORDERED: 0.9 % Sodium Chloride 500 ML IV ONE (23:28)
[2020-11-03 00:30] LABS: Basophils # 0.1 K/mcL (0.0-0.2); Basophils % 0.6 %; Eosinophils # 0.2 K/mcL (0.0-0.6); Eosinophils % 2.4 %; Hematocrit 28.1 % (35.3-44.9); Hemoglobin 9.3 g/dL (11.5-15.4); Immature Granulocytes % 0.6 % (0-4); Lymphocytes # 2.1 K/mcL (0.6-4.6); Lymphocytes % 24.1 %; Mean Corpuscular HGB Conc 33.1 g/dL (31.6-35.5); Mean Corpuscular Hemoglobin 29.8 pg (28.0-33.3); Mean Corpuscular Volume 90.1 fL (83.0-100.0); Mean Platelet Volume 9.7 fL (9.4-12.4); Monocytes # 0.6 K/mcL (0.0-1.3); Monocytes % 7.1 %; Neutrophils # 5.8 K/mcL (1.6-8.9); Platelet Count 169 K/mcL (140-400); Red Blood Count 3.12 M/mcL (3.82-4.97); Red Cell Distribution Width 14.1 % (11.5-14.5); Segmented Neutrophils % 65.2 %; White Blood Count 8.8 K/mcL (4.3-11.1)
[2020-11-03 02:53] LABS: Chol/HDL Ratio 5.2 (0-4.9)
[2020-11-03] MEDS ORDERED: Pantoprazole 40 MG VIAL IVP ONE ×2 (04:28→05:00)
[2020-11-03] MEDS: 0.9 % Sodium Chloride 500 ML IVC PRN ×2 (04:59→08:10)
[2020-11-03 06:35] LABS: Basophils % 0.5 %; Eosinophils # 0.2 K/mcL (0.0-0.6); Eosinophils % 2.2 %; Hematocrit 27.1 % (35.3-44.9); Hemoglobin 8.9 g/dL (11.5-15.4); Immature Granulocytes % 0.4 % (0-4); Lymphocytes % 24.5 %; Mean Corpuscular HGB Conc 32.8 g/dL (31.6-35.5); Mean Corpuscular Hemoglobin 29.8 pg (28.0-33.3); Mean Corpuscular Volume 90.6 fL (83.0-100.0); Mean Platelet Volume 9.9 fL (9.4-12.4); Monocytes # 0.5 K/mcL (0.0-1.3); Monocytes % 6.7 %; Neutrophils # 5.3 K/mcL (1.6-8.9); Platelet Count 168 K/mcL (140-400); Red Blood Count 2.99 M/mcL (3.82-4.97); Red Cell Distribution Width 14.2 % (11.5-14.5); Segmented Neutrophils % 65.7 %
[2020-11-03] MEDS: *HR* Ticagrelor 90 MG TABLET PO SCH (07:26)
[2020-11-03] MEDS: Aspirin Enteric Coated 81 MG Tablet PO SCH (07:27)
[2020-11-03] MEDS: Insulin LISPRO 300 UNITS/3 ML VIAL SUBQ SCH ×4 (07:29→21:02)
[2020-11-03] MEDS ORDERED: FLUoxetine 20 MG CAPSULE PO SCH (09:00)
[2020-11-03] MEDS: Acetaminophen 325 MG TABLET PO PRN (10:24)
[2020-11-03] MEDS ORDERED: *HR* Propofol 200 MG/20 ML VIAL IVP ONE (11:56)
[2020-11-03] MEDS ORDERED: Lidocaine -MPF 2% 2 ML VIAL ONE (11:57)
[2020-11-03] MEDS ORDERED: Ipratropium/Albuterol Neb 3 ML IH PRN (14:49)
[2020-11-03] MEDS ORDERED: SODIUM CHLORIDE/NAHCO3/KCL/PEG 4,000 ML SOLN.RECON PO ONE (17:00)
[2020-11-03] MEDS: Pantoprazole 40 MG VIAL IVP SCH (17:18)
[2020-11-03 18:13] LABS: Hematocrit 31.7 % (35.3-44.9); Hemoglobin 10.4 g/dL (11.5-15.4)
[2020-11-03] MEDS ORDERED: 0.9 % Sodium Chloride 1,000 ML IVC ONE (18:24)
[2020-11-03] MEDS: Nicotine 21 MG PATCH.TD24 TD SCH (20:58)
[2020-11-03] MEDS: *HR* HYDROcodone/Acet 5/325 mg TABLET PO PRN (21:00)
[2020-11-03] MEDS: Insulin DETEMIR 100 UNIT/ML X5UNITS SUBQ SCH (21:01)
[2020-11-04] MEDS: *HR* Ticagrelor 90 MG TABLET PO SCH ×2 (00:01→08:48)
[2020-11-04 00:53] LABS: Hematocrit 29.4 % (35.3-44.9); Hemoglobin 9.7 g/dL (11.5-15.4)
[2020-11-04] MEDS: Acetaminophen 325 MG TABLET PO PRN (03:27)
[2020-11-04] MEDS: Pantoprazole 40 MG VIAL IVP SCH (05:16)
[2020-11-04 05:45] LABS: Hematocrit 29.4 % (35.3-44.9); Hemoglobin 9.6 g/dL (11.5-15.4); Mean Corpuscular HGB Conc 32.7 g/dL (31.6-35.5); Mean Corpuscular Hemoglobin 30.1 pg (28.0-33.3); Mean Corpuscular Volume 92.2 fL (83.0-100.0); Mean Platelet Volume 9.8 fL (9.4-12.4); Platelet Count 159 K/mcL (140-400); Red Blood Count 3.19 M/mcL (3.82-4.97); Red Cell Distribution Width 14.7 % (11.5-14.5); White Blood Count 6.7 K/mcL (4.3-11.1)
[2020-11-04 06:05] LABS: BUN/Creatinine Ratio 18 (6-26); Blood Urea Nitrogen 16 mg/dL (6-20); Calcium 8.2 mg/dL (8.6-10.3); Carbon Dioxide 15 mEq/L (23-29); Chloride 118 mEq/L (98-107); Glucose 162 mg/dL (70-105); Magnesium 1.5 mg/dL (1.6-2.6); Osmolality,Calculated 293 (280-300); Potassium 3.3 mEq/L (3.5-5.1); Sodium 139 mEq/L (136-145); eGFR For African Americans > 60 (> 60); eGFR For Non-African Americans > 60 (> 60)
[2020-11-04] MEDS: Aspirin Enteric Coated 81 MG Tablet PO SCH (08:48)
[2020-11-04] MEDS: Nicotine 21 MG PATCH.TD24 TD SCH (08:48)
[2020-11-04] MEDS: Insulin LISPRO 300 UNITS/3 ML VIAL SUBQ SCH ×2 (08:49→12:14)
[2020-11-04] MEDS: *HR* HYDROcodone/Acet 5/325 mg TABLET PO PRN (08:54)
[2020-11-04] MEDS ORDERED: FLUoxetine 20 MG CAPSULE PO SCH (09:00)
[2020-11-04 10:58] VITALS: BP 95/66
== END 2020-11-04 12:45 | disposition home or self-care (01) | DRG 247 ==
LOC: 2NENU 03:07 → EMEROOARM 03:07 → SUATTDRO 06:19 → 2NENU 07:59
PROVIDERS: ADMIT Student in an Organized Health Care Education/Training Program; ATTEND Internal Medicine

== ENCOUNTER 2020-11-22 08:51 | Observation (INO) ==
[2020-11-22] MEDS ORDERED: 0.9 % Sodium Chloride 1,000 ML IVC ONE ×2 (09:30→10:36)
[2020-11-22] MEDS ORDERED: Isovue-370 500 ML BOTTLE IVP ONE (09:30)
[2020-11-22] MEDS ORDERED: Ondansetron 4 MG/2 ML VIAL IVP ONE (09:30)
[2020-11-22] MEDS ORDERED: Ipratropium/Albuterol Neb 3 ML IH ONE (09:32)
[2020-11-22 10:04] LABS: Bacteria,Urine Few per hpf (None-Few); Bilirubin,Urine Negative (Negative); Blood,Urine Negative (Negative); Clarity,Urine Turbid (Clear); Color,Urine Yellow (Yellow); Glucose,Urine (UA) 50 mg/dL (Normal); Hyaline Casts,Urine Many per lpf (None Seen); Ketones,Urine Trace mg/dL (Negative); Leukocyte Esterase,Urine Negative (Negative); Mucus,Urine Many per lpf (None-Few); Nitrite,Urine Negative (Negative); Protein,Urine 200 mg/dL (Neg-Trace); RBC,Urine 0-3 per hpf (0-3); Specific Gravity,Urine > 1.030 (1.010-1.025); Squamous Epithelial Cell,Urine Few per hpf (None-Few)
[2020-11-22 10:15] LABS: Basophils # 0.1 K/mcL (0.0-0.2); Basophils % 0.6 %; Eosinophils # 0.1 K/mcL (0.0-0.6); Eosinophils % 0.5 %; Hematocrit 34.6 % (35.3-44.9); Hemoglobin 11.3 g/dL (11.5-15.4); Immature Granulocytes % 0.5 % (0-4); Lymphocytes # 1.7 K/mcL (0.6-4.6); Lymphocytes % 16.1 %; Mean Corpuscular HGB Conc 32.7 g/dL (31.6-35.5); Mean Corpuscular Hemoglobin 29.2 pg (28.0-33.3); Mean Corpuscular Volume 89.4 fL (83.0-100.0); Mean Platelet Volume 9.8 fL (9.4-12.4); Monocytes # 0.6 K/mcL (0.0-1.3); Monocytes % 5.6 %; Neutrophils # 8.3 K/mcL (1.6-8.9); Platelet Count 282 K/mcL (140-400); Red Blood Count 3.87 M/mcL (3.82-4.97); Red Cell Distribution Width 13.6 % (11.5-14.5); Segmented Neutrophils % 76.7 %; White Blood Count 10.8 K/mcL (4.3-11.1)
[2020-11-22 10:36] LABS: Alanine Aminotransferase 11 Units/L (7-52); Albumin 3.8 g/dL (3.5-5.7); Albumin/Globulin Ratio 1.5 (1.1-2.2); Alkaline Phosphatase 96 Units/L (34-104); Aspartate Amino Transferase 8 Units/L (13-39); BUN/Creatinine Ratio 13 (6-26); Bilirubin,Direct 0.1 mg/dL (0.0-0.2); Bilirubin,Indirect 0.3 mg/dL (0.0-1.0); Bilirubin,Total 0.4 mg/dL (0.3-1.0); Blood Urea Nitrogen 14 mg/dL (6-20); Calcium 9.3 mg/dL (8.6-10.3); Carbon Dioxide 19 mEq/L (23-29); Chloride 106 mEq/L (98-107); Globulin 2.5 g/dL (2.4-3.5); Glucose 232 mg/dL (70-105); Lipase 73 Units/L (11-82); Osmolality,Calculated 290 (280-300); Potassium 3.6 mEq/L (3.5-5.1); Sodium 136 mEq/L (136-145); Total Protein 6.3 g/dL (6.4-8.9); eGFR For African Americans > 60 (> 60); eGFR For Non-African Americans 53 (> 60)
[2020-11-22] MEDS ORDERED: Naloxone 0.4 MG/ML INJ IVP PRN (12:17)
[2020-11-22 12:44] LABS: Magnesium 1.3 mg/dL (1.6-2.6)
[2020-11-22] MEDS ORDERED: Dextrose Gel 15 GM/37.5 ML TUBE PO PRN ×2 (13:10)
[2020-11-22] MEDS ORDERED: D5% in Water 1,000 ML IVC PRN (13:10)
[2020-11-22] MEDS ORDERED: *HR* Dextrose 50 % in Water (Vial) 50 ML VIAL IVP PRN (13:10)
[2020-11-22] MEDS ORDERED: Insulin LISPRO 300 UNITS/3 ML VIAL SUBQ SCH ×2 (13:11→21:00)
[2020-11-22] MEDS: MetroNIDAZOLE 500 MG/100 ML 500 MG/100 ML BAG IVPB SCH ×2 (16:00→20:38)
[2020-11-22] MEDS: Sodium Bicarbonate 75 MEQ in 0.45 % Sodium Chloride 1,000 ML IVC SCH (18:10)
[2020-11-22] MEDS ORDERED: Acetaminophen 325 MG TABLET PO PRN (20:59)
[2020-11-22] MEDS: *HR* Heparin 5,000 UNIT/ML VIAL SQ SCH (21:57)
[2020-11-22] MEDS: *HR* Ticagrelor 90 MG TABLET PO SCH (23:32)
[2020-11-23 02:09] LABS: Basophils # 0.1 K/mcL (0.0-0.2); Basophils % 0.9 %; Eosinophils # 0.1 K/mcL (0.0-0.6); Eosinophils % 1.9 %; Hematocrit 30.1 % (35.3-44.9); Hemoglobin 9.9 g/dL (11.5-15.4); Immature Granulocytes % 0.4 % (0-4); Lymphocytes # 2.7 K/mcL (0.6-4.6); Lymphocytes % 36.3 %; Mean Corpuscular HGB Conc 32.9 g/dL (31.6-35.5); Mean Corpuscular Hemoglobin 29.4 pg (28.0-33.3); Mean Corpuscular Volume 89.3 fL (83.0-100.0); Mean Platelet Volume 10.1 fL (9.4-12.4); Monocytes # 0.6 K/mcL (0.0-1.3); Monocytes % 7.5 %; Platelet Count 244 K/mcL (140-400); Red Blood Count 3.37 M/mcL (3.82-4.97); Red Cell Distribution Width 13.6 % (11.5-14.5); White Blood Count 7.6 K/mcL (4.3-11.1)
[2020-11-23 02:29] LABS: BUN/Creatinine Ratio 11 (6-26); Blood Urea Nitrogen 9 mg/dL (6-20); Calcium 7.8 mg/dL (8.6-10.3); Carbon Dioxide 21 mEq/L (23-29); Chloride 108 mEq/L (98-107); Glucose 182 mg/dL (70-105); Magnesium 1.7 mg/dL (1.6-2.6); Osmolality,Calculated 289 (280-300); Phosphorous 2.7 mg/dL (2.7-4.5); Sodium 138 mEq/L (136-145); eGFR For African Americans > 60 (> 60); eGFR For Non-African Americans > 60 (> 60)
[2020-11-23] MEDS: *HR* Heparin 5,000 UNIT/ML VIAL SQ SCH (05:13)
[2020-11-23] MEDS: MetroNIDAZOLE 500 MG/100 ML 500 MG/100 ML BAG IVPB SCH (05:13)
[2020-11-23] MEDS: Sodium Bicarbonate 75 MEQ in 0.45 % Sodium Chloride 1,000 ML IVC SCH (06:32)
[2020-11-23] MEDS ORDERED: Insulin LISPRO 300 UNITS/3 ML VIAL SUBQ SCH (07:30)
[2020-11-23 08:06] VITALS: BP 100/62
[2020-11-23] MEDS: *HR* Ticagrelor 90 MG TABLET PO SCH (08:09)
[2020-11-23] MEDS ORDERED: hydrOXYzine pamoate 25 MG CAPSULE PO PRN (08:19)
[2020-11-23] MEDS ORDERED: Nicotine 21 MG PATCH.TD24 TD SCH (09:00)
[2020-11-23] MEDS ORDERED: Sucralfate 1 GM TABLET PO SCH (09:00)
[2020-11-23] MEDS ORDERED: FLUoxetine 20 MG CAPSULE PO SCH (09:00)
[2020-11-23] MEDS ORDERED: Aspirin Enteric Coated 81 MG Tablet PO SCH (09:00)
[2020-11-23] MEDS ORDERED: Insulin DETEMIR 100 UNIT/ML X5UNITS SUBQ SCH (21:00)
== END 2020-11-23 10:54 | disposition home or self-care (01) ==
LOC: EMEROOARM 08:51 → 3ANU 08:51 → SUATTDRO 12:41 → 3ANU 13:44 → 3BNU 23:55
PROVIDERS: ADMIT Internal Medicine; ATTEND Internal Medicine

== ENCOUNTER 2020-12-02 13:00 | Observation (INO) ==
[2020-12-02] MEDS ORDERED: *HR* Promethazine 25 MG/ML VIAL IM ONE (13:38)
[2020-12-02] MEDS ORDERED: 0.9 % Sodium Chloride 1,000 ML IVC ONE ×2 (13:38→17:51)
[2020-12-02 14:26] LABS: Basophils # 0.1 K/mcL (0.0-0.2); Basophils % 0.5 %; Eosinophils % 0.2 %; Hematocrit 40.8 % (35.3-44.9); Hemoglobin 13.3 g/dL (11.5-15.4); Immature Granulocytes % 0.5 % (0-4); Lymphocytes # 1.2 K/mcL (0.6-4.6); Lymphocytes % 8.9 %; Mean Corpuscular HGB Conc 32.6 g/dL (31.6-35.5); Mean Corpuscular Hemoglobin 28.5 pg (28.0-33.3); Mean Corpuscular Volume 87.6 fL (83.0-100.0); Mean Platelet Volume 10.3 fL (9.4-12.4); Monocytes # 0.5 K/mcL (0.0-1.3); Monocytes % 3.3 %; Neutrophils # 12.1 K/mcL (1.6-8.9); Platelet Count 322 K/mcL (140-400); Red Blood Count 4.66 M/mcL (3.82-4.97); Red Cell Distribution Width 13.2 % (11.5-14.5); Segmented Neutrophils % 86.6 %
[2020-12-02 14:26] LABS: VBG HCO3 19 mEq/L (21-27); VBG PCO2 31 mmHg (41-51); VBG PH 7.39 pH Units (7.32-7.42); VBG PO2 73 mmHg (25-50)
[2020-12-02 14:42] LABS: Bilirubin,Urine Negative (Negative); Blood,Urine Negative (Negative); Clarity,Urine Clear (Clear); Color,Urine Yellow (Yellow); Glucose,Urine (UA) 300 mg/dL (Normal); Hyaline Casts,Urine Moderate per lpf (None Seen); Ketones,Urine Trace mg/dL (Negative); Leukocyte Esterase,Urine Trace (Negative); Mucus,Urine Few per lpf (None-Few); Nitrite,Urine Negative (Negative); Protein,Urine 100 mg/dL (Neg-Trace); Renal Epithelial Cells,Urine Few per hpf (None-Few); Specific Gravity,Urine > 1.030 (1.010-1.025); Squamous Epithelial Cell,Urine Few per hpf (None-Few); Transitional Epi Cells,Urine Few per hpf (None-Few); Urobilinogen,Urine Normal (Normal); WBC,Urine 0-3 per hpf (0-3)
[2020-12-02 14:44] LABS: Albumin 4.6 g/dL (3.5-5.7); Albumin/Globulin Ratio 1.4 (1.1-2.2); Bilirubin,Total 0.4 mg/dL (0.3-1.0); Calcium 9.9 mg/dL (8.6-10.3); Globulin 3.2 g/dL (2.4-3.5); Potassium 3.7 mEq/L (3.5-5.1); Total Protein 7.8 g/dL (6.4-8.9)
[2020-12-02] MEDS ORDERED: Ondansetron 4 MG/2 ML VIAL IVP ONE (15:42)
[2020-12-02] MEDS ORDERED: Metoclopramide 10 MG/2 ML VIAL IVP ONE (17:00)
[2020-12-02] MEDS ORDERED: Morphine Sulfate 2 MG/ML SYRINGE IVP ONE (17:00)
[2020-12-02] MEDS ORDERED: Naloxone 0.4 MG/ML INJ IVP PRN (17:55)
[2020-12-02] MEDS ORDERED: Ondansetron 4 MG/2 ML VIAL IVP PRN (17:55)
[2020-12-02] MEDS ORDERED: Ipratropium/Albuterol Neb 3 ML IH PRN (17:58)
[2020-12-02] MEDS ORDERED: Prochlorperazine 10 MG/2 ML VIAL IM PRN (18:00)
[2020-12-02] MEDS ORDERED: D5% in Water 1,000 ML IVC PRN (18:01)
[2020-12-02] MEDS ORDERED: Dextrose Gel 15 GM/37.5 ML TUBE PO PRN ×2 (18:01)
[2020-12-02] MEDS ORDERED: *HR* Dextrose 50 % in Water (Vial) 50 ML VIAL IVP PRN (18:01)
[2020-12-02] MEDS ORDERED: *HR* Metoprolol 5 MG/5 ML VIAL IVP PRN (18:01)
[2020-12-02 20:27] LABS: Adenovirus Not Detected (Not Detect); Coronavirus 229E Not Detected (Not Detect); Coronavirus HKU1 Not Detected (Not Detect); Coronavirus NL63 Not Detected (Not Detect); Coronavirus OC43 Not Detected (Not Detect); Human Metapneumovirus Not Detected (Not Detect); Human Rhinovirus/Enterovirus Not Detected (Not Detect); SARS-CoV-2 Not Detected (Not Detect)
[2020-12-02 20:28] LABS: Bordetella Pertussis Not Detected (Not Detect); Chlamydophila pneumoniae Not Detected (Not Detect); Influenza A Subtype 2009 H1 Not Detected (Not Detect); Influenza B Not Detected (Not Detect); Mycoplasma pneumoniae Not Detected (Not Detect); Parainfluenza Virus 1 Not Detected (Not Detect); Parainfluenza Virus 2 Not Detected (Not Detect); Parainfluenza Virus 3 Not Detected (Not Detect); Parainfluenza Virus 4 Not Detected (Not Detect); Respiratory Syncytial Virus Not Detected (Not Detect)
[2020-12-02] MEDS: 0.9 % Sodium Chloride 1,000 ML IVC SCH (21:24)
[2020-12-03] MEDS: *HR* Heparin 5,000 UNIT/ML VIAL SQ SCH ×3 (00:24→16:59)
[2020-12-03] MEDS: Nicotine 21 MG PATCH.TD24 TD SCH ×3 (00:24→16:59)
[2020-12-03] MEDS: Insulin LISPRO 300 UNITS/3 ML VIAL SUBQ SCH ×5 (00:25→20:06)
[2020-12-03 01:51] LABS: Basophils # 0.1 K/mcL (0.0-0.2); Basophils % 0.5 %; Eosinophils # 0.1 K/mcL (0.0-0.6); Eosinophils % 0.6 %; Hematocrit 32.9 % (35.3-44.9); Immature Granulocytes % 0.4 % (0-4); Lymphocytes # 3.1 K/mcL (0.6-4.6); Lymphocytes % 28.2 %; Mean Corpuscular HGB Conc 32.2 g/dL (31.6-35.5); Mean Corpuscular Hemoglobin 28.5 pg (28.0-33.3); Mean Corpuscular Volume 88.4 fL (83.0-100.0); Mean Platelet Volume 10.2 fL (9.4-12.4); Monocytes # 0.9 K/mcL (0.0-1.3); Monocytes % 8.3 %; Neutrophils # 6.9 K/mcL (1.6-8.9); Platelet Count 233 K/mcL (140-400); Red Blood Count 3.72 M/mcL (3.82-4.97); Red Cell Distribution Width 13.2 % (11.5-14.5); White Blood Count 11.1 K/mcL (4.3-11.1)
[2020-12-03 01:52] LABS: Hemoglobin 10.6 g/dL (11.5-15.4)
[2020-12-03 02:11] LABS: BUN/Creatinine Ratio 17 (6-26); Blood Urea Nitrogen 15 mg/dL (6-20); Carbon Dioxide 19 mEq/L (23-29); Chloride 109 mEq/L (98-107); Glucose 121 mg/dL (70-105); Osmolality,Calculated 284 (280-300); Potassium 3.3 mEq/L (3.5-5.1); Sodium 136 mEq/L (136-145); eGFR For African Americans > 60 (> 60); eGFR For Non-African Americans > 60 (> 60)
[2020-12-03] MEDS: Pantoprazole 40 MG VIAL IVP SCH (08:18)
[2020-12-03] MEDS ORDERED: Famotidine 20 MG/2 ML VIAL IVP STA (09:32)
[2020-12-03] MEDS ORDERED: GI Cocktail 40 ML EACH PO STA (09:32)
[2020-12-03] MEDS: 0.9 % Sodium Chloride 1,000 ML IVC SCH ×2 (09:46→10:48)
[2020-12-03] MEDS ORDERED: hydrOXYzine pamoate 25 MG CAPSULE PO PRN (12:46)
[2020-12-03] MEDS ORDERED: Nitroglycerin 0.4 MG TAB.SUBL SL SCH (13:00)
[2020-12-03] MEDS ORDERED: Nitroglycerin 0.4 MG TAB.SUBL SL PRN (13:45)
[2020-12-03 15:02] LABS: C.difficile Toxin A/B Gene PCR Not detected (Not detect); Campylobacter by PCR Not detected (Not detect); Enteroaggregative E.coli(EAEC) Not detected (Not detect); Plesiomonas shigelloides PCR Not detected (Not detect); Salmonella PCR Not detected (Not detect); Vibrio PCR Not detected (Not detect); Vibrio cholerae PCR Not detected (Not detect); Yersinia enterocolitica PCR Not detected (Not detect)
[2020-12-03 15:03] LABS: Adenovirus F 40/41 PCR Not detected (Not detect); Astrovirus PCR Not detected (Not detect); Cryptosporidium by PCR Not detected (Not detect); Cyclospora cayetanensis PCR Not detected (Not detect); E. coli O157 by PCR Not detected (Not detect); Entamoeba histolytica PCR Not detected (Not detect); Enteropathogenic E.coli(EPEC) Not detected (Not detect); Enterotoxigenic E.coli (ETEC) Not detected (Not detect); Giardia lamblia PCR Not detected (Not detect); Norovirus GI/GII PCR Not detected (Not detect); Rotavirus A PCR Not detected (Not detect); Sapovirus PCR Not detected (Not detect); Shig/EnteroinvasiveE coli EIEC Not detected (Not detect); Shigalike tox-prod E coli STEC Not detected (Not detect)
[2020-12-03] MEDS: FLUoxetine 20 MG CAPSULE PO SCH (15:20)
[2020-12-03] MEDS: Famotidine 20 MG/2 ML VIAL IVP SCH (16:59)
[2020-12-03] MEDS: Acetaminophen 325 MG TABLET PO PRN (17:25)
[2020-12-03] MEDS: *HR* Ticagrelor 90 MG TABLET PO SCH (20:03)
[2020-12-04] MEDS: Acetaminophen 325 MG TABLET PO PRN (02:26)
[2020-12-04 03:07] LABS: Basophils # 0.1 K/mcL (0.0-0.2); Basophils % 0.6 %; Eosinophils # 0.1 K/mcL (0.0-0.6); Eosinophils % 1.2 %; Hematocrit 31.8 % (35.3-44.9); Hemoglobin 10.4 g/dL (11.5-15.4); Immature Granulocytes % 0.5 % (0-4); Lymphocytes % 23.7 %; Mean Corpuscular HGB Conc 32.7 g/dL (31.6-35.5); Mean Corpuscular Hemoglobin 28.9 pg (28.0-33.3); Mean Corpuscular Volume 88.3 fL (83.0-100.0); Mean Platelet Volume 10.3 fL (9.4-12.4); Monocytes # 0.7 K/mcL (0.0-1.3); Monocytes % 7.6 %; Neutrophils # 5.7 K/mcL (1.6-8.9); Platelet Count 223 K/mcL (140-400); Red Cell Distribution Width 13.1 % (11.5-14.5); Segmented Neutrophils % 66.4 %; White Blood Count 8.6 K/mcL (4.3-11.1)
[2020-12-04 03:27] LABS: BUN/Creatinine Ratio 13 (6-26); Blood Urea Nitrogen 10 mg/dL (6-20); Calcium 8.1 mg/dL (8.6-10.3); Carbon Dioxide 21 mEq/L (23-29); Chloride 112 mEq/L (98-107); Glucose 116 mg/dL (70-105); Osmolality,Calculated 286 (280-300); Potassium 3.7 mEq/L (3.5-5.1); Sodium 138 mEq/L (136-145); eGFR For African Americans > 60 (> 60); eGFR For Non-African Americans > 60 (> 60)
[2020-12-04] MEDS: *HR* Heparin 5,000 UNIT/ML VIAL SQ SCH (05:38)
[2020-12-04] MEDS: Famotidine 20 MG/2 ML VIAL IVP SCH (05:38)
[2020-12-04 07:42] VITALS: BP 101/52
[2020-12-04] MEDS: Pantoprazole 40 MG VIAL IVP SCH (07:58)
[2020-12-04] MEDS: FLUoxetine 20 MG CAPSULE PO SCH (07:59)
[2020-12-04] MEDS: Insulin LISPRO 300 UNITS/3 ML VIAL SUBQ SCH (08:00)
[2020-12-04] MEDS: *HR* Ticagrelor 90 MG TABLET PO SCH (08:00)
[2020-12-04] MEDS: Nicotine 21 MG PATCH.TD24 TD SCH (08:08)
[2020-12-04] MEDS ORDERED: Aspirin Enteric Coated 81 MG Tablet PO SCH (09:00)
== END 2020-12-04 10:03 | disposition home or self-care (01) ==
LOC: 3BNU 13:00 → EMEROOARM 13:00 → SUATTDRO 18:48 → 3BNU 20:27
PROVIDERS: ADMIT Internal Medicine; ATTEND Student in an Organized Health Care Education/Training Program